=== PATIENT | female | born 1970 | race Caucasian/White ===

== ENCOUNTER 2020-02-01 10:22 | Inpatient (IN) | payer MEDICAID ==
[~2020-02-01] VITALS: Ht 144.8 cm; Wt 52.5 kg
[2020-02-01] MEDS ORDERED: ASPIRIN 81 MG TABLET CHEW ONE (10:51)
[2020-02-01] MEDS ORDERED: NITROGLYCERIN SINGLE TAB 0.4 MG SL ONE (10:51)
[2020-02-01] MEDS ORDERED: ASPIRIN 81 MG TABLET CHEW PO ONE (11:00)
[2020-02-01] MEDS ORDERED: SODIUM CHLORIDE FLUSH 10ML SYR IVF ONE (11:00)
[2020-02-01] MEDS ORDERED: NITROGLYCERIN SINGLE TAB 0.4 MG SL PRN (11:00)
--- NOTE | 2020-02-01 11:05 | NUR ---
PT PRESENTS TO ED WITH C/O LEFT SIDED CHEST PRESSURE (4/10) RADIATING TO LEFT BACK AND STERNUM, PRESENT X 1 MONTH. PT ALSO NOTES LEFT ARM AND LEG WEAKNESS X 3 WEEKS, LEFT ARM AND LEG NUMBNESS X 1 DAY. PT STATES RIGHT LEG HAD TRANSIENT NUMBNESS LAST WEEK, NO LONGER PRESENT. PT DENIES SORE THROAT, SOB, FEVERS. PIV PLACED. PT ON ALL MONITORS, EKG COMPLETED IN TRIAGE. 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 PT A&O, RESPS EVEN AND UNLABORED. PT TO XRAY AT THIS TIME.
--- NOTE | 2020-02-01 11:15 | NUR ---
late entry for 1115: weakness and numbness noted to left arm and leg, EDMD Fabrice notified. Pt states left arm and leg have been weaker x 3 weeks, numbness started yesterday. Per MD, head CT not indicated at this time. MD notified bp 106/56, per MD 500mL bolus to be admin prior to nitro. report given to ZACK Pereira at bedside.
[2020-02-01 11:26] LABS: BASOPHILS # (AUTO) 0.02 x10^3/uL (0-0.1); BASOPHILS % (AUTO) 0 % (0-1); EOSINOPHILS # (AUTO) 0.02 x10^3/uL (0-0.4); EOSINOPHILS % (AUTO) 0 % (1-7); LYMPHOCYTES % (AUTO) 22 % (22-44); MD NO; MEAN CORPUSCULAR HEMOGLOBIN 31.7 pg (27.0-34.8); MEAN CORPUSCULAR HGB CONC 33.9 g/dL (32.4-35.8); MEAN CORPUSCULAR VOLUME 93.3 fL (80-100); MEAN PLATELET VOLUME 8.4 fL (7.4-10.4); MONOCYTES # (AUTO) 0.31 x10^3/uL (0.2-0.8); MONOCYTES % (AUTO) 5 % (2-9); NEUTROPHILS # (AUTO) 4.37 x10^3/uL (1.8-6.8); NEUTROPHILS % (AUTO) 73 % (42-75); PLATELET COUNT 279 x10^3/uL (130-400); RED BLOOD COUNT 4.33 x10^6/uL (3.82-5.3); RED CELL DISTRIBUTION WIDTH 14.7 % (9.6-15.2)
[2020-02-01] MEDS ORDERED: SODIUM CHLORIDE 0.9% 1,000ML IVBOLUS ONE (11:30)
--- NOTE | 2020-02-01 11:33 | NUR ---
Pt resting, states CP 11/28, will admin NTG post 500 cc bolus for soft BP per MD. Pt states some numbness and weakness to Left arm and leg, present for "weeks", MD aware. Pt able to ambulate to restroom without issue. Daugter at bedside.
[2020-02-01 11:37] LABS: ALBUMIN 4.2 g/dL (3.4-5.0); ANION GAP 7 mmol/L (5-15); CALCIUM 9.2 mg/dL (8.5-10.1); CHLORIDE 108 mmol/L (98-107); CREATININE 0.77 mg/dL (0.55-1.02)
[2020-02-01 11:40] LABS: TROPONIN I < 0.015 ng/mL (0.000-0.045)
[2020-02-01] MEDS ORDERED: LEVO88TA4 PO (11:56)
[2020-02-01] MEDS ORDERED: HYDR-826 PO (11:57)
[2020-02-01] MEDS ORDERED: OMEP-110 PO (11:58)
--- NOTE | 2020-02-01 12:05 | NUR ---
Bolus complete, NTG administered.
--- NOTE | 2020-02-01 12:34 | NUR ---
Pt states improved CP post NTG. BP lower, placed in trendelenbirg, asymptomatic, no distress noted. Will monitior.
--- NOTE | 2020-02-01 13:00 | NUR ---
Pt resting, BP continuing to improve post NTG, 100/57. Hospitalist at bedside. No complaints or needs at tis time. Updated on plan of care.
[2020-02-01] MEDS ORDERED: ONDANSETRON 2MG/ML, 2ML IVPush PRN (13:30)
[2020-02-01] MEDS ORDERED: hydrALAzine 20 MG/ML, 1ML IVPush PRN (13:30)
[2020-02-01] MEDS ORDERED: ACETAMINOPHEN 325 MG TABLET PO PRN (13:30)
[2020-02-01] MEDS ORDERED: ENOXAPARIN 40 MG/0.4 ML SQ SCH (13:30)
[2020-02-01] MEDS ORDERED: ENOXAPARIN 40 MG/0.4 ML ONE (13:48)
[2020-02-01] MEDS ORDERED: PANTOPRAZOLE 40 MG IV ONE (13:51)
[2020-02-01] MEDS: PANTOPRAZOLE 40 MG IV IVPush SCH (13:56)
--- NOTE | 2020-02-01 14:04 | NUR ---
Pt resting wit family at bedside, request made for gluten free diet.
[2020-02-01 15:29] VITALS: BP 99/65
[2020-02-01] MEDS: SUCRALFATE 1 GM/10 ML UDC PO SCH ×2 (16:00→21:30)
[2020-02-01 18:34] LABS: TROPONIN I < 0.015 ng/mL (0.000-0.045)
[2020-02-01] MEDS ORDERED: TRAZODONE 50MG TABLET PO SCH (21:00)
[2020-02-01 21:19] VITALS: BP 90/57
[2020-02-02 00:30] VITALS: BP 93/59
[2020-02-02 00:52] LABS: TROPONIN I < 0.015 ng/mL (0.000-0.045)
[2020-02-02 05:14] LABS: BASOPHILS # (AUTO) 0.02 x10^3/uL (0-0.1); BASOPHILS % (AUTO) 0 % (0-1); EOSINOPHILS # (AUTO) 0.05 x10^3/uL (0-0.4); EOSINOPHILS % (AUTO) 1 % (1-7); LYMPHOCYTES # (AUTO) 2.22 x10^3/uL (1-3.4); LYMPHOCYTES % (AUTO) 36 % (22-44); MD NO; MEAN CORPUSCULAR HEMOGLOBIN 31.8 pg (27.0-34.8); MEAN CORPUSCULAR HGB CONC 33.7 g/dL (32.4-35.8); MEAN CORPUSCULAR VOLUME 94.3 fL (80-100); MEAN PLATELET VOLUME 8.3 fL (7.4-10.4); MONOCYTES # (AUTO) 0.38 x10^3/uL (0.2-0.8); MONOCYTES % (AUTO) 6 % (2-9); NEUTROPHILS # (AUTO) 3.49 x10^3/uL (1.8-6.8); NEUTROPHILS % (AUTO) 57 % (42-75); PLATELET COUNT 240 x10^3/uL (130-400); RED BLOOD COUNT 3.95 x10^6/uL (3.82-5.3); RED CELL DISTRIBUTION WIDTH 14.7 % (9.6-15.2)
[2020-02-02 05:27] LABS: ANION GAP 9 mmol/L (5-15); CALCIUM 8.7 mg/dL (8.5-10.1); CHLORIDE 109 mmol/L (98-107); CREATININE 0.79 mg/dL (0.55-1.02)
[2020-02-02 05:32] LABS: TROPONIN I < 0.015 ng/mL (0.000-0.045)
[2020-02-02] MEDS ORDERED: ASPIRIN 81 MG TABLET EC PO SCH (06:00)
[2020-02-02] MEDS ORDERED: POTASSIUM CHLORIDE 20 MEQ TAB.ER.PRT PO ONE (07:30)
[2020-02-02 07:34] VITALS: BP 84/49
[2020-02-02] MEDS ORDERED: FLUOXETINE 10 MG CAP PO SCH ×2 (09:00)
[2020-02-02 09:25] VITALS: BP_SYST 80; BP_SYST 85; BP_DIAS 56; BP_DIAS 60
[2020-02-02] MEDS: PANTOPRAZOLE 40 MG IV IVPush SCH (09:57)
[2020-02-02] MEDS: SUCRALFATE 1 GM/10 ML UDC PO SCH ×2 (09:57→11:00)
[2020-02-02] MEDS ORDERED: LEVOTHYROXINE 88 MCG TABLET PO SCH (10:00)
[2020-02-02] MEDS ORDERED: PANT40TA5 PO (11:18)
[2020-02-02] MEDS ORDERED: ZOLP-413 PO (11:18)
[2020-02-02] MEDS ORDERED: SUCR1TAB PO (11:18)
[2020-02-02] MEDS ORDERED: FLUO20CA23 PO (11:18)
[2020-02-02] MEDS ORDERED: CLON-364 PO (11:18)
== END 2020-02-02 13:05 | disposition home or self-care (01) | DRG 313 ==
LOC: ED 10:47 → SUATTDRO 12:12 → EDIP 13:10 → 5SO 15:29 → DCLOUNGE 02-02 12:43
PROVIDERS: ADMIT Hospitalist; ATTEND Hospitalist
DX: R07.9 Chest pain, unspecified (principal); E03.9 Hypothyroidism, unspecified; F41.1 Generalized anxiety disorder; G47.00 Insomnia, unspecified; K21.9 Gastro-esophageal reflux disease without esophagitis; R07.2 Precordial pain
CPT/HCPCS: 36415; 71046; 80048; 82040; 83735; 83880; 84100; 84443; 84484; 85025; 93005; 93017; 93306; 93356; 96372; 99285; G0378; J1650; C9113; J7030

== ENCOUNTER 2020-02-18 18:08 | Emergency (ER) | payer MEDICAID ==
[~2020-02-18] VITALS: Ht 144.8 cm; Wt 54.2 kg
[~2020-02-18 18:08] MED LIST: CLON-364 PO; FLUO20CA23 PO; HYDR-826 PO; LEVO88TA4 PO; OMEP-110 PO; PANT40TA5 PO; SUCR1TAB PO; ZOLP-413 PO
[2020-02-18] MEDS ORDERED: MORPHINE SULFATE 4 MG/ML, 1ML IVPush PRN (18:30)
[2020-02-18] MEDS ORDERED: ONDANSETRON 2MG/ML, 2ML IVPush ONE (18:30)
--- NOTE | 2020-02-18 18:37 | NUR ---
PT WITH C/O INTERMITTANT CP STARTING THIS MONDAY, PT ALSO HAVING NUMBNESS AND TINGLING IN L ARM AND FINGERS. PT DENIES SOB/FEVER/COUGH. PT TO BP, CONT PULSE OX, CARD MONTIOR. ERPROVIDER IN TO EVAL PT
[2020-02-18 18:45] LABS: BASOPHILS # (AUTO) 0.03 x10^3/uL (0-0.1); BASOPHILS % (AUTO) 0 % (0-1); EOSINOPHILS # (AUTO) 0.07 x10^3/uL (0-0.4); EOSINOPHILS % (AUTO) 1 % (1-7); LYMPHOCYTES # (AUTO) 2.05 x10^3/uL (1-3.4); LYMPHOCYTES % (AUTO) 27 % (22-44); MD NO; MEAN CORPUSCULAR HEMOGLOBIN 31.7 pg (27.0-34.8); MEAN CORPUSCULAR VOLUME 93.3 fL (80-100); MONOCYTES # (AUTO) 0.49 x10^3/uL (0.2-0.8); MONOCYTES % (AUTO) 6 % (2-9); NEUTROPHILS # (AUTO) 5.02 x10^3/uL (1.8-6.8); NEUTROPHILS % (AUTO) 66 % (42-75); PLATELET COUNT 315 x10^3/uL (130-400); RED BLOOD COUNT 4.01 x10^6/uL (3.82-5.3); RED CELL DISTRIBUTION WIDTH 13.9 % (9.6-15.2)
--- NOTE | 2020-02-18 18:50 | NUR ---
Pt bedside report from Diana jordan. This rn to assume care of pt. ERP at bedside. This rn to medicate per oct.
[2020-02-18] MEDS ORDERED: ONDANSETRON 2MG/ML, 2ML ONE (18:52)
[2020-02-18] MEDS ORDERED: MORPHINE SULFATE 4 MG/ML, 1ML ONE (18:52)
[2020-02-18 18:54] LABS: ALANINE AMINOTRANSFERASE 56 U/L (12-78); ALBUMIN 3.9 g/dL (3.4-5.0); ANION GAP 6 mmol/L (5-15); CALCIUM 9.2 mg/dL (8.5-10.1); CHLORIDE 105 mmol/L (98-107); CREATININE 0.82 mg/dL (0.55-1.02)
[2020-02-18 18:58] LABS: ALKALINE PHOSPHATASE 61 U/L (45-117); BILIRUBIN,TOTAL 0.9 mg/dL (0.2-1.0); TOTAL PROTEIN 7.6 g/dL (6.4-8.2); TROPONIN I < 0.015 ng/mL (0.000-0.045)
[2020-02-18 19:12] VITALS: BP 113/56
--- NOTE | 2020-02-18 19:29 | NUR ---
Software Test Analyst used b/c pt is maltese speaking only. Explained ct by rural electrification engineer and explained meds and poc by med student. Iv initiated and pt to ct.
[2020-02-18] MEDS ORDERED: OMNIPAQUE 350 MG/ML, 75ML BOTTLE ONE (19:35)
--- NOTE | 2020-02-18 19:45 | NUR ---
All results back. Pt up for recheck. States pain is improved since media analyst.
[2020-02-18] MEDS ORDERED: LORazepam 1MG TABLET ONE (20:19)
--- NOTE | 2020-02-18 20:24 | NUR ---
Given ativan because pt thinks they are having an anxiety attack.
[2020-02-18] MEDS ORDERED: LORazepam 1MG TABLET PO ONE (20:30)
== END 2020-02-18 20:48 | disposition home or self-care (01) ==
LOC: ED 19:35
DX: S29.012A Strain of muscle and tendon of back wall of thorax, initial encounter (principal); H53.8 Other visual disturbances; R06.02 Shortness of breath; R07.9 Chest pain, unspecified; K21.9 Gastro-esophageal reflux disease without esophagitis; E03.9 Hypothyroidism, unspecified; X58.XXXA Exposure to other specified factors, initial encounter; Y93.89 Activity, other specified; Y92.89 Other specified places as the place of occurrence of the external cause; Y99.8 Other external cause status
CPT/HCPCS: 36415; 71275; 80053; 83880; 84484; 85025; 93005; 96374; 96375; 99285; J2270; J2405; Q9967

== ENCOUNTER 2020-06-21 10:22 | Emergency (ER) | payer MEDICAID ==
[~2020-06-21] VITALS: Ht 144.8 cm; Wt 52.5 kg
[~2020-06-21 10:22] MED LIST changes: -PANT40TA5 PO; +PANT40TA6 PO
[2020-06-21] MEDS ORDERED: ONDANSETRON 2MG/ML, 2ML IVPush ONE (11:00)
[2020-06-21] MEDS ORDERED: SODIUM CHLORIDE FLUSH 10ML SYR IVF ONE (11:00)
[2020-06-21] MEDS ORDERED: KETOROLAC 30 MG/1 ML IVPush ONE (11:00)
[2020-06-21] MEDS ORDERED: MORPHINE SULFATE 4 MG/ML, 1ML IVPush PRN (11:00)
[2020-06-21 11:24] LABS: BASOPHILS % (AUTO) 0 % (0-1); EOSINOPHILS % (AUTO) 0 % (1-7); LYMPHOCYTES % (AUTO) 26 % (22-44); MEAN CORPUSCULAR HEMOGLOBIN 29.4 pg (27.0-34.8); MEAN CORPUSCULAR HGB CONC 33.7 g/dL (32.4-35.8); MEAN PLATELET VOLUME 8.1 fL (7.4-10.4); MONOCYTES % (AUTO) 4 % (2-9); NEUTROPHILS % (AUTO) 69 % (42-75); PLATELET COUNT 260 x10^3/uL (130-400); RED BLOOD COUNT 4.71 x10^6/uL (3.82-5.3); RED CELL DISTRIBUTION WIDTH 13.5 % (9.6-15.2)
[2020-06-21 11:27] LABS: MD SCAN
--- NOTE | 2020-06-21 11:30 | NUR ---
PT TO XRAY
[2020-06-21 11:34] LABS: ALANINE AMINOTRANSFERASE 32 U/L (12-78); CALCIUM 9.1 mg/dL (8.5-10.1); CREATININE 0.76 mg/dL (0.55-1.02)
[2020-06-21 11:39] LABS: ALKALINE PHOSPHATASE 67 U/L (45-117); BILIRUBIN,TOTAL 1.2 mg/dL (0.2-1.0); TOTAL PROTEIN 7.8 g/dL (6.4-8.2); TROPONIN I < 0.015 ng/mL (0.000-0.045)
--- NOTE | 2020-06-21 11:41 | NUR ---
PT BACK FROM XRAY
[2020-06-21 11:44] LABS: ANION GAP 3 mmol/L (5-15); CHLORIDE 108 mmol/L (98-107)
--- NOTE | 2020-06-21 11:45 | NUR ---
PT PRESENTS TO ED WITH C/O INTERMITTENT STERNAL CP FOR LAST FEW WEEKS, ASSOCIATED PALPITATIONS. PT DECLINES MORPHINE/ZOFRAN, CAMILA CABRAL NOTIFIED. PT PLACED ON ALL MONTIORS. CALL LIGHT IN REACH. AWAITING LAB RESULTS AND DISPO.
[2020-06-21] MEDS ORDERED: KETOROLAC 30 MG/1 ML ONE (11:48)
[2020-06-21] MEDS ORDERED: MORPHINE SULFATE 4 MG/ML, 1ML ONE (11:48)
[2020-06-21] MEDS ORDERED: ONDANSETRON 2MG/ML, 2ML ONE (11:48)
[2020-06-21] MEDS ORDERED: CYCLOBENZAPRINE 10 MG TABLET ONE (11:59)
[2020-06-21] MEDS ORDERED: KETOROLAC 30 MG/1 ML IM ONE (12:00)
[2020-06-21] MEDS ORDERED: CYCLOBENZAPRINE 10 MG TABLET PO ONE (12:00)
[2020-06-21 12:35] LABS: FREE T4 (FREE THYROXINE) 1.97 ng/dL (0.76-1.46)
[2020-06-21 14:20] VITALS: BP 125/62
== END 2020-06-21 14:48 | disposition home or self-care (01) ==
LOC: ED 12:12
DX: R07.89 Other chest pain (principal); R00.0 Tachycardia, unspecified; I51.7 Cardiomegaly; R94.31 Abnormal electrocardiogram [ECG] [EKG]; R42 Dizziness and giddiness; E03.9 Hypothyroidism, unspecified; K21.9 Gastro-esophageal reflux disease without esophagitis
CPT/HCPCS: 36415; 71046; 80053; 84439; 84443; 84481; 84484; 85025; 85379; 93005; 96372; 99285; J1885